=== PATIENT | male | born 1950 | race Caucasian/White ===

== ENCOUNTER → 2016-12-03 | Outpatient (CLI) | payer BC ==
--- NOTE | 2016-12-04 14:23 | ECHO ---
EXAM DATE: 12/03/16 The echocardiogram report can be seen in this patient's EMR (Electronic Medical Record) in the Reports section. ARIC
== END ==
LOC: MW.US 13:54
PROVIDERS: ATTEND Internal Medicine
DX: I25.10 Atherosclerotic heart disease of native coronary artery without angina pectoris (principal); I25.5 Ischemic cardiomyopathy
CPT/HCPCS: 93306

== ENCOUNTER 2017-12-12 19:10 | Emergency (ER) | payer BC ==
[2017-12-12] MEDS ORDERED: Diphtheria,Pertussis(Acell),Tetanus Vaccine 0.5 ML Syringe IM ONE (19:35)
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
[2017-12-12 21:00] VITALS: BP 149/90
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
== END 2017-12-12 21:23 | disposition home or self-care (01) ==
LOC: MW.ED 19:10
DX: S82.831A Other fracture of upper and lower end of right fibula, initial encounter for closed fracture (principal); I25.10 Atherosclerotic heart disease of native coronary artery without angina pectoris; I10 Essential (primary) hypertension; E78.00 Pure hypercholesterolemia, unspecified; Z87.442 Personal history of urinary calculi; Z79.82 Long term (current) use of aspirin; Z79.899 Other long term (current) drug therapy; Z23 Encounter for immunization; V29.60XA Unspecified motorcycle rider injured in collision with unspecified motor vehicles in traffic accident, initial encounter
CPT/HCPCS: 73610-26-RT; 73610-RT; 90471; 90715; 99283-25